=== PATIENT | female | born 1945 | race Caucasian/White ===

== ENCOUNTER 2016-12-27 13:56 | Inpatient (IN) ==
[2016-12-27] MEDS ORDERED: PROPOFOL 200 MG/20 ML VIAL IV ONE (14:10)
--- NOTE | 2016-12-27 15:05 | EKG Report ---
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
[2016-12-27] MEDS ORDERED: HYDROmorphone 2 MG/1 ML VIAL IV STA (15:24)
[2016-12-27] MEDS ORDERED: ONDANSETRON 4 MG/2 ML VIAL IV STA (15:24)
[2016-12-27] MEDS ORDERED: HYDROmorphone 2 MG/1 ML VIAL ONE (15:26)
[2016-12-27] MEDS ORDERED: ONDANSETRON 4 MG/2 ML VIAL ONE (15:26)
[2016-12-27 15:28] LABS: Hematocrit 34.5 VOL% (35.7-47.0); Hemoglobin 11.7 GM/DL (12.0-16.0); Mean Corpuscular HGB Conc 33.9 GM/DL (32-36); Mean Corpuscular Hemoglobin 30 PG (27-34); Mean Corpuscular Volume 88.2 FL (87-102); Red Blood Count 3.91 MC/CUMM (3.8-5.5); White Blood Count 14.6 T/CUMM (4-12)
[2016-12-27 15:29] LABS: Basophils % 0.2 % (0.0-0.8); Eosinophils % 0.2 % (0.00-10.9); Immature Granulocytes % 0.6 %; Immature Granulocytes Absolute 0.09 #; Lymphocytes # 0.7 10*3/uL (1.4-4.0); Lymphocytes % 4.5 % (21.3-54.2); Mean Platelet Volume 9.7 FL (9.6-12.0); Monocytes # 0.5 10*3/uL (0.11-0.8); Monocytes % 3.3 % (1.7-12.7); Neutrophils # 13.3 10*3/uL (1.4-7.4); Neutrophils % 91.2 % (38.7-73.9); Platelet Count 225 T/CUMM (130-400); Red Cell Distribution Width 13.2 % (9.3-17.3)
--- NOTE | 2016-12-27 15:31 | Emergency Department Note ---
Dwaine Segura Brittany, am scribing for, and in the presence of, Silverio Nava MD 14:09. Elijah Segura Doug C, MD, personally performed the services described in this documentation, ascribed by Esther Isidro in my presence, and it is both accurate and complete 531 . Arrival - Arrival Chief Complaint: Fall Stated Complaint: ext injury ED Nursing Triage Note: pt to er 04 via ems coming from home with c/o having a fall today while at home. pt has deformity noted to left arm and is c/o pain to left arm and left knee. pt was given 4mg zofran and 4mg morphine, 25mg benadryl. Mode of Arrival: Stretcher Limitations: No Limitations Source: Patient, RN Notes Reviewed Time Seen by Provider: 12/27/16 14:05 - History of Present Illness HPI Narrative: Patient is a 71-year-old white female who states she was walking in her home and stumbled and fell landing on her left side injuring her left elbow and her left knee. Patient states she is also having pain in her left hip. She was unable to get up on her own and ambulance was called and she was brought here for further evaluation. Patient had obvious deformity of the left upper extremity was noted to have swelling above the left knee. Patient denies any loss of consciousness she denies head injury or neck injury. She denies any chest pain or right-sided extremity pain. She does have a history of osteoporosis apparently suffered several fractures in the past Onset (ago): minute(s) Consistency: constant Severity: severe Severity scale (1-10): 9 Quality: aching Allergies/Adverse Reactions: Allergies Allergy/AdvReac Type Severity Reaction Status Date / Time No Known Allergies Allergy Verified 12/27/16 14:03 Home Medications: Home Medications Medication Instructions Recorded Confirmed Type Cholecalciferol (Vitamin D3) 50,000 unit PO Q7DAY 09/02/14 12/27/16 History [Vitamin D3] Calcium Carbonate [Calcium] 500 mg PO QAM 11/01/14 12/27/16 History Pantoprazole Tab [Protonix Tab] 40 mg PO QAM 11/01/14 12/27/16 History glyBURIDE [Glyburide] 5 mg PO QAM 12/27/16 12/27/16 History Review of System - Review of System 12 point system: reviewed and no additional remarkable complaints except as stated - Review of System Constitutional: Absent: chills, fever Eyes: Absent: vision change Head/Ears/Nose/Throat: Absent: nasal drainage, sore throat Respiratory: Absent: respiratory distress Cardiovascular: Absent: chest pain Gastrointestinal: Absent: abdominal pain, nausea, vomiting, diarrhea, constipation Genitourinary female: Absent: dysuria, frequency, urgency Musculoskeletal: Present: arm pain (LUE), leg pain (L hip, L knee). Absent: back pain, neck pain Skin: Absent: rash Neurological: Absent: headache Psychiatric: Absent: anxiety, depression Hematological/Lymphatic: Absent: easy bleeding, easy bruising Medical,Surgical,& Family Hx - Medical History Endocrine: History of: Diabetes Mellitus (NIDDM) Gastrointestinal: History of: GERD Musculoskeletal: History of: Osteoporosis - Surgical History Orthopedic Surgeries: Surgical HX of;: Orthopedic Surgery (left knee, left hip about 5-8yrs ago) - Family History Family History: Reports;: Family Heart Disease (father and mother) - Social History Smoking Status: Never smoker Frequency of Alcohol Use: None Type of Drug Use: None Exam Vital Signs: Vital Signs Temperature 97.9 F 12/27/16 13:56 Pulse Rate 89 12/27/16 13:56 Respiratory Rate 18 12/27/16 13:56 Blood Pressure 168/91 12/27/16 13:56 O2 Sat by Pulse Oximetry 100 12/27/16 14:47 - General General appearance: alert, in distress (appears uncomfortable secondary to pain) - Head Head exam: Present: atraumatic, normocephalic, normal inspection - Eye Eye exam: Present: normal appearance, PERRL, EOMI - ENT ENT exam: Present: normal exam, normal oropharynx - Neck Neck exam: Present: normal inspection, full ROM, trachea midline - Chest Chest inspection: Present: normal inspection, symmetric chest wall rise - Respiratory Respiratory exam: Present: normal lung sounds bilaterally. Absent: respiratory distress - Cardiovascular Cardiovascular exam: Present: regular rate, normal rhythm, normal heart sounds. Absent: murmur, rubs, gallop - Abdominal Exam Abdominal exam: Present: soft, normal bowel sounds. Absent: tenderness - Extremities Exam Extremities exam: Present: tenderness (L hip & L kneeTTP; LUE TTP), normal capillary refill. Absent: normal inspection (Dislocation and obvious deformity of LUE, radial pulse of LUE intac; normal sensation LUE), full ROM (limited ROM to LUE secondary to dislocation; limited ROM to L hip and L knee secondary to pain) - Back Exam Back exam: Present: normal inspection - Neurological Exam Neurological exam: Present: alert, oriented X3, CN II-XII intact. Absent: motor sensory deficit - Psychiatric Psychiatric exam: Present: normal affect, normal mood - Skin Skin exam: Present: warm, dry Course Course Narrative: After reduction of left elbow fracture posterior splint was applied to the left elbow and knee immobilizer to the left knee. I discussed her radiographic findings and clinical presentation with Dr. Uribe. He asked that the patient be admitted to Dr. Corley services and medicine consult for preoperative evaluation. Dr. Uribe requested CT of the elbow and knee. Chest x-ray and EKG were obtained from the emergency room which revealed no acute abnormality. Procedures - Orthopedic Fracture Reduction Fracture #1 Consent Obtained: verbal consent Time Out Performed: Yes Side: left Fracture Reduction Location: humerus Analgesia: procedural sedation Technique: direct manipulation Post Reduction X-rays Demonstrate: acceptable reduction Post-reduction neuro exam: intact Post-reduction vascular exam: intact Splint Applied: Yes Patient Tolerated Procedure: well Results - EKG EKG results: interpreted by GHASSAN, sinus rhythm (86 bpm), no acute changes - Diagnostic Findings Procedure: X-ray: report reviewed by me (Comminuted fracture of left distal femur and comminuted fracture of left distal humerus. Postreduction views of left elbow reveal persistent displacement.) Disposition Clinical Impression: Fracture dislocation of left elbow joint, Closed left femoral fracture, History of osteoporosis Case discussed with: patient, patient's family Disposition: Still a Patient Condition: Guarded Time of Disposition: 15:31
--- NOTE | 2016-12-27 15:34 | XRay Report ---
Exam: XR knee 2V LT Exam date: 12/27/2016 2:06 PM Indication: Fall, deformity Pain, Comparison: No relevant comparisons Findings: Comminuted angulated and overriding fracture of the distal femur with fracture lines extending through the metaphysis. Degenerative changes across the joint space. Hematoma at the fracture site. No radiographic soft tissue abnormalities. Impression: Comminuted, overriding and displaced fracture of the distal femoral metadiaphysis PROCEDURE INTERPRETED AT [facility] DEPARTMENT OF RADIOLOGY Final Report Signed by: Braeden Pichardo
[2016-12-27] MEDS ORDERED: HYDROmorphone 2 MG/1 ML VIAL IV PRN (15:36)
[2016-12-27] MEDS ORDERED: ONDANSETRON 4 MG/2 ML VIAL IV PRN (15:36)
[2016-12-27] MEDS ORDERED: MAGNESIUM HYDROXIDE SUSP 30 ML UDCUP PO PRN (15:36)
[2016-12-27] MEDS ORDERED: ZALEPLON 5 MG CAPSULE PO PRN (15:36)
--- NOTE | 2016-12-27 15:36 | XRay Report ---
Exam: XR elbow 2V LT Exam date: 12/27/2016 2:07 PM Indication: Deformity, fall, swelling Pain, Comparison: No relevant comparisons Findings: Severely comminuted supracondylar fracture with isolation of the medial lateral condyles. . Surrounding soft tissue hematoma and small hemarthrosis. No radiographic soft tissue abnormalities. Impression: Severely comminuted, angulated and overriding supracondylar fracture PROCEDURE INTERPRETED AT [facility] DEPARTMENT OF RADIOLOGY Final Report Signed by: Braeden Pichardo
--- NOTE | 2016-12-27 15:37 | XRay Report ---
Portable chest Exam date: 12/27/2016 2:06 PM Indication: Shortness of breath, cough fall with extremity deformity Comparison: November 02, 2014 Findings: Cardiomediastinal contours are stable. Chronic interstitial opacities. No acute osseous abnormalities. Visualized upper abdomen demonstrates no acute pathology. Impression: No acute cardiopulmonary findings PROCEDURE INTERPRETED AT [facility] DEPARTMENT OF RADIOLOGY Final Report Signed by: Braeden Pichardo
--- NOTE | 2016-12-27 15:38 | XRay Report ---
Exam: XR femur LT Exam date: 12/27/2016 2:06 PM Indication: Fall with deformity and pain Pain, Comparison: Two-view left knee performed on same date Findings: Dynamic compression screw stabilizing a remote healed femoral neck fracture, uncomplicated. Reidentification of the severely comminuted, overriding and angulated distal femoral metadiaphyseal fracture. Impression: Comminuted distal femoral metadiaphyseal fracture PROCEDURE INTERPRETED AT [facility] DEPARTMENT OF RADIOLOGY Final Report Signed by: Braeden Pichardo
--- NOTE | 2016-12-27 15:39 | XRay Report ---
Exam: XR humerus LT Exam date: 12/27/2016 2:07 PM Indication: Deformity, fall Pain, Comparison: Elbow performed on same day Findings: There is again severely comminuted, overriding and displaced supracondylar fracture. Soft tissue deformity and likely small hemarthrosis is again noted Impression: Severely comminuted, angulated and overriding supracondylar fracture PROCEDURE INTERPRETED AT [facility] DEPARTMENT OF RADIOLOGY Final Report Signed by: Braeden Pichardo
--- NOTE | 2016-12-27 15:40 | XRay Report ---
Exam: XR humerus LT Exam date: 12/27/2016 2:07 PM Indication: Fall with pain and deformity Pain, Comparison: Elbow and humerus performed on same day Findings/ impression: No change in position or alignment of the severely comminuted, displaced and overriding intracondylar fracture PROCEDURE INTERPRETED AT [facility] DEPARTMENT OF RADIOLOGY Final Report Signed by: Braeden Pichardo
--- NOTE | 2016-12-27 15:42 | XRay Report ---
Exam: XR forearm LT Exam date: 12/27/2016 2:07 PM Indication: Fall with pain and deformity Pain, Comparison: Images performed on same day at 1415 hours FINDINGS/ IMPRESSION: Fiberglas cast now stabilizes supracondylar fracture. Overall alignment appears improved PROCEDURE INTERPRETED AT [facility] DEPARTMENT OF RADIOLOGY Final Report Signed by: Braeden Pichardo
--- NOTE | 2016-12-27 15:43 | XRay Report ---
Exam: XR hip 2v w pelvis LT Exam date: 12/27/2016 2:06 PM Indication: Follow with pain and deformity Pain, Comparison: December 29, 2011 Findings: Joint spaces fairly well maintained. Dynamic compression screw stabilizing a remote healed left femoral neck fracture, uncomplicated. No joint effusion. No radiographic soft tissue abnormalities. Impression: No acute findings PROCEDURE INTERPRETED AT [facility] DEPARTMENT OF RADIOLOGY Final Report Signed by: Braeden Pichardo
[2016-12-27 15:49] LABS: Calcium 8.1 MG/DL (8.5-10.1); Osmolality,Calculated 289.3 MOS/KG (273-304); Potassium 3.8 MMOL/L (3.5-5.1)
[2016-12-27 16:00] LABS: Lymphocytes 3 % (20-55); Segmented Neutrophils 96 % (50-85); Total Cells Counted 100
[2016-12-27 16:01] LABS: Platelet Estimate Adequate
--- NOTE | 2016-12-27 16:35 | CT Report ---
Noncontrast CT left knee December 27, 2016 Indication: Fracture, deformity Comparison images not available Technique: CT scan of the left knee was performed without contrast per routine protocol. The CT exam was performed using one or more of the following dose reduction techniques: Automated exposure control, adjustment of the mA and/or kV according to patient size, or use of iterative reconstruction technique. Findings: Comminuted, impacted and angulated fracture of the distal femoral metadiaphysis. Small hemarthrosis. Hematoma at the fracture site. Joint alignment is maintained. No additional fractures are demonstrated. Extensive atheromatous plaquing involving the superficial femoral artery and popliteal origin. Impression: Comminuted, angulated and impaction fracture of the distal femoral metadiaphysis Soft tissue hematoma and small hemarthrosis without findings to suggest vascular injury PROCEDURE INTERPRETED AT [facility] DEPARTMENT OF RADIOLOGY Final Report Signed by: Braeden Pichardo
--- NOTE | 2016-12-27 17:05 | CT Report ---
Limited noncontrast CT left elbow December 27, 2016 Indication: Fall with fracture Comparison CT not available Technique: CT scanning of the left elbow was performed without contrast per routine protocol. The CT exam was performed using one or more of the following dose reduction techniques: Automated exposure control, adjustment of the mA and/or kV according to patient size, or use of iterative reconstruction technique. Findings: Examination is slightly limited secondary to fixed flexion positioning secondary to casting There is severely comminuted supracondylar fracture with isolation of the epicondyles. Angulation and overriding of the dominant fragments. Fragmentation of the capitate. Small hemarthrosis as well as extensive soft tissue hematoma at the fracture site. Impression: 1. Limited study secondary to patient's positioning 2. Severely comminuted supracondylar fracture with isolation fragmentation of the epicondyles and capitate PROCEDURE INTERPRETED AT [facility] DEPARTMENT OF RADIOLOGY Final Report Signed by: Braeden Pichardo
--- NOTE | 2016-12-27 17:12 | Orthopedic Progress Note ---
Assessment and Plan (1) Diabetes mellitus Status: Acute Current Visit: No (2) Fracture dislocation of left elbow joint Status: Acute Assessment and plan: Discussed with the patient and daughter the severity of the left distal humerus fracture and the complexity of the nature of the fracture due to the multiple fragments, the displacement of the fragments, as well as her osteoporosis. Discussed that she will most likely develop significant stiffness, arthritis, pain, and other potential complications from her injury. Discuss treatment options, due to the severity of the fracture and the displacement of the fragments, recommend proceeding with surgical intervention. They have been treated by Dr. Corley in the past and requested him to be the orthopedic surgeon and she is admitted to Dr. Corley service. Discussed that if she is cleared by the medical team for surgery, plan for surgical fixation of her left distal humerus, as well as her left femur tomorrow Current Visit: Yes (3) Closed left femoral fracture Status: Acute Assessment and plan: Discussed the severity of her fracture and multiple combination. We discussed treatment options, and because of the multiple fragments, and the position of the fracture, recommend surgical intervention. They have requested Dr. Corley. Plan for surgical fixation left femur tomorrow if cleared by medicine Consent ordered for surgical fixation left elbow, surgical fixation left distal femur, and any other indicated procedures Current Visit: Yes (4) History of osteoporosis Status: Acute Current Visit: Yes Orthopedics - Subjective Interval history: 71-year-old female seen in the hospital room with her daughter at bedside. States that she had a mechanical fall today. She is brought to the emergency department by EMS. Images were taken which showed a severely comminuted left elbow intra-articular fracture with complete displacement radially, as well as a left distal femur severely comminuted fracture. She complaining of numbness to her left hand. Denies any other complaints. States the pain has been alleviated with her being immobilized as well as with pain medication. Exam - Constitutional Vitals: Period Temp Pulse Resp BP Sys/Batista Pulse Ox Last 24 Hr 97.9 F-97.9 F 89-89 18-18 160-168/91-92 96-100 General appearance: normal weight, no acute distress - Head Head exam: Present: normal inspection, normocephalic, atraumatic - Eye Eye exam: Present: EOMI Pupils: Present: JUSTUS - ENT ENT exam: Present: normal exam - Neck Neck exam: Present: normal inspection. Absent: tenderness - Respiratory Respiratory exam: Absent: accessory muscle use, wheezes - Cardiovascular Cardiovascular exam: Present: regular rate and rhythm - GI/Abdominal GI/Abdominal exam: Absent: distended, firm - Expanded Left Upper Extremity General: Present: normal inspection (Long-arm splint in place. Tender palpation at elbow. Full active range of motion all 5 digits. Sensation blunted to the dorsal hand and middle finger. Capillary refill brisk.) - Expanded Left Lower Knee exam: Present: normal inspection (Knee immobilizer in place. Calf is supple and soft. Full active range of motion foot and ankle. Capillary refill brisk. Sensation intact.) Gait: Present: not tested/not observed - Neurological Exam Neurological exam: Present: alert, oriented X3, CN II-XII intact - Psychiatric Psychiatric exam: Present: normal affect, normal mood - Skin Skin exam: Present: normal color Results - Labs CBC & BMP: 12/27/16 15:18 12/27/16 15:18 Lab Results: I have reviewed the past 24 hour labs - Diagnostic Findings Procedure: CT: image reviewed by me, report reviewed by me, X-ray: image reviewed by me, report reviewed by me Quality Measures - VTE Contraindication to Pharmacological VTE Prophylaxis: Extremities with Hemorrhage
--- NOTE | 2016-12-27 17:20 | Hospitalist Consult Note ---
Assessment and Plan (1) Diabetes mellitus Status: Acute Current Visit: No (2) Fracture dislocation of left elbow joint Status: Acute Current Visit: Yes (3) Closed left femoral fracture Status: Acute Current Visit: Yes (4) History of osteoporosis Status: Acute Assessment and plan: Patient is in need of surgical intervention of her fractures. I am going to order a UA and culture. Patient has no history of coronary artery disease. There is no Q waves in her EKG. There is no ST depression or ST elevations. Patient has no symptoms consistent with coronary artery disease. Patient surgical risk is at a minimum for the procedure. I will have her on sliding scale since her glucose is elevated and recheck a BMP in the morning. Current Visit: Yes History of Present Illness - Consult Narrative Reason for consult: Medical problems History of present illness: Ms. Wong is a 71 year old female with past medical history significant for diabetes, hiatal hernia and osteoporosis who was in normal state of health until today. Patient was at home standing and fell over. She did not trip over anything and I am unsure why she fell. Apparently she has a history of frequent falls. She suffered a knee fracture and elbow fracture. She is brought to our hospital for further evaluation. Patient was admitted to orthopedic surgery we were consulted for her medical problems. Patient is fairly active has no history of coronary artery disease and no significant limitations of her activities. She is on vitamin D supplementation but is not on a bisphosphonate. She follows up with Dr. Smith in [place]. CC: Pastor Corley Jr., - Home Medications and Allergies Home Medications: Home Medications Medication Instructions Recorded Confirmed Type Cholecalciferol (Vitamin D3) 50,000 unit PO Q709/02/14 12/27/16 History [Vitamin D3] Calcium Carbonate [Calcium] 500 mg PO QAM 11/01/14 12/27/16 History Pantoprazole Tab [Protonix Tab] 40 mg PO QAM 11/01/14 12/27/16 History glyBURIDE [Glyburide] 5 mg PO QAM 12/27/16 12/27/16 History Allergies/Adverse Reactions: Allergies Allergy/AdvReac Type Severity Reaction Status Date / Time No Known Allergies Allergy Verified 12/27/16 14:03 Medical,Surgical,& Family Hx - Medical History Endocrine: History of: Diabetes Mellitus (NIDDM) Gastrointestinal: History of: GERD Musculoskeletal: History of: Osteoporosis - Surgical History Orthopedic Surgeries: Surgical HX of;: Orthopedic Surgery (left knee, left hip about 5-8yrs ago) - Family History Family History: Reports;: Family Heart Disease (father and mother), Family Stroke - Social History Smoking Status: Never smoker Frequency of Alcohol Use: None Type of Drug Use: None 12 point system: reviewed and no additional remarkable complaints except as stated Exam - Constitutional Vitals: Period Temp Pulse Resp BP Sys/Batista Pulse Ox Last 24 Hr 97.9 F-97.9 F 89-89 18-18 160-168/91-92 96-100 - General General appearance: alert, in no acute distress currently after receiving pain medication - Head Head exam: Present: atraumatic, normocephalic, normal inspection - Eye Eye exam: Present: normal appearance, PERRL, EOMI - ENT ENT exam: Present: normal exam, normal oropharynx - Neck Neck exam: Present: normal inspection, full ROM, trachea midline - Chest Chest inspection: Present: normal inspection, symmetric chest wall rise - Respiratory Respiratory exam: Present: normal lung sounds bilaterally. Absent: respiratory distress - Cardiovascular Cardiovascular exam: Present: regular rate, normal rhythm, normal heart sounds. Absent: murmur, rubs, gallop - Abdominal Exam Abdominal exam: Present: soft, normal bowel sounds. Absent: tenderness - Extremities Exam Extremities exam: Patient's left upper extremity and left lower extremity both have splints in place. No deformities are currently noted . Peripheral pulses are intact - Back Exam Back exam: Present: normal inspection - Neurological Exam Neurological exam: Present: alert, oriented X3, CN II-XII intact. Absent: motor sensory deficit - Psychiatric Psychiatric exam: Present: normal affect, normal mood - Skin Skin exam: Present: warm, dry Results - Labs CBC & BMP: 12/27/16 15:18 12/27/16 15:18 Quality Measures - VTE Contraindication to Pharmacological VTE Prophylaxis: Extremities with Hemorrhage
[2016-12-27] MEDS ORDERED: DEXTROSE 50% 25 GM/50 ML SYRINGE IV PRN ×2 (17:27→17:36)
[2016-12-27] MEDS ORDERED: GLUCAGON 1 MG VIAL IM PRN (17:27)
[2016-12-27] MEDS: MORPHINE 2 MG/1 ML SYRINGE IV PRN (17:34)
[2016-12-27] MEDS: SODIUM CHLORIDE 0.9% 1,000 ML IV SCH (17:47)
[2016-12-27 18:51] LABS: Apearance,Urine CLEAR (Clear); Bilirubin,Urine Negative (Negative); Blood, Urine Negative (Negative); Glucose,Urine (UA) >=500 mg/dL (Negative); Ketones,Urine 5 mg/dL (Negative); Mucus,Urine Occasional /LPF (Occasional); Nitrite,Urine Positive (Negative); Protein,Urine Negative; RBC,Urine 1 /HPF (0-4); Squamous Epithelial Cell,Urine Occasional /HPF (0-10); Urine Specific Gravity 1.027 (1.001-1.035); WBC,Urine 1 /HPF (0-6)
[2016-12-27 18:52] LABS: Urine Color Dark yellow (Yellow)
[2016-12-27] MEDS: INSULIN REGULAR 100 UNIT/ML SUBCUT SCH (20:57)
[2016-12-28] MEDS: MORPHINE 2 MG/1 ML SYRINGE IV PRN ×2 (01:18→05:11)
[2016-12-28] MEDS: SODIUM CHLORIDE 0.9% 1,000 ML IV SCH ×3 (02:28→11:35)
[2016-12-28 06:43] LABS: Calcium 6.3 MG/DL (8.5-10.1); Osmolality,Calculated 287.7 MOS/KG (273-304); Potassium 3.4 MMOL/L (3.5-5.1)
--- NOTE | 2016-12-28 07:26 | Orthopedic Progress Note ---
Orthopedics - Subjective Interval history: Mrs Wong was seen this morning, examined, the chart and x-rays were reviewed. Alert and oriented Left upper extremity splinted. Sensation is slightly diminished to light touch to her first dorsal webspace, index finger and small finger. She has Heberden' s and Codey's nodes. She is able to flex, extend abductor abductor fingers. She has good abduction strength. Capillary refill is less than 2 seconds. Exam left lower extremity shows that she is splinted. She can flex and extend her toes and ankles. Sensations intact to the first webspace, plantar and dorsal aspects of her foot. She is a 2+ dorsalis pedis pulse. Capillary refill is less than [address] scan were reviewed. Impression: Left comminuted supracondylar/intercondylar distal femur fracture. Left hip retained hardware Left comminuted supracondylar/intercondylar distal humerus fracture I have recommended surgical fixation of both fractures fractures. I discussed the risks and benefits as well as my concerns regarding the poor quality of her bone. We discussed the pre-existing arthritis in her knee. I anticipate that she will be essentially wheelchair bound for the first 6 weeks. All questions were answered. Risks include but not limited to infection, bleeding, anesthesia , thromboembolic event, , stiffness, arthritis, need for further procedures , etc. I discussed the possibility of an ulnar nerve palsy. Exam - Constitutional Vitals: Period Temp Pulse Resp BP Sys/Batista Pulse Ox Last 24 Hr 97.8 F-99.4 F 82-104 18-18 114-168/64-92 91-100 Results - Labs CBC & BMP: 12/28/16 08:38 12/28/16 04:56 Quality Measures - VTE Contraindication to Pharmacological VTE Prophylaxis: Extremities with Hemorrhage
[2016-12-28] MEDS: INSULIN REGULAR 100 UNIT/ML SUBCUT SCH ×4 (08:01→21:01)
[2016-12-28] MEDS ORDERED: POTASSIUM CHLORIDE 20 MEQ/15 ML UDCUP PO ONE (08:02)
[2016-12-28 08:09] LABS: Basophils % 0.2 % (0.0-0.8); Hematocrit 26.1 VOL% (35.7-47.0); Immature Granulocytes % 0.5 %; Immature Granulocytes Absolute 0.06 #; Lymphocytes # 1.3 10*3/uL (1.4-4.0); Lymphocytes % 10.2 % (21.3-54.2); Mean Corpuscular HGB Conc 33.7 GM/DL (32-36); Mean Corpuscular Hemoglobin 30 PG (27-34); Mean Corpuscular Volume 89.4 FL (87-102); Mean Platelet Volume 10.3 FL (9.6-12.0); Monocytes # 1.1 10*3/uL (0.11-0.8); Monocytes % 8.8 % (1.7-12.7); Neutrophils # 10.1 10*3/uL (1.4-7.4); Neutrophils % 80.3 % (38.7-73.9); Platelet Count 253 T/CUMM (130-400); Red Cell Distribution Width 13.3 % (9.3-17.3); White Blood Count 12.5 T/CUMM (4-12)
[2016-12-28 08:11] LABS: Hemoglobin 8.8 GM/DL (12.0-16.0); Red Blood Count 2.92 MC/CUMM (3.8-5.5)
[2016-12-28 08:58] LABS: Basophils % 0.2 % (0.0-0.8); Hematocrit 25.7 VOL% (35.7-47.0); Hemoglobin 8.6 GM/DL (12.0-16.0); Immature Granulocytes % 0.7 %; Immature Granulocytes Absolute 0.07 #; Lymphocytes # 1.3 10*3/uL (1.4-4.0); Lymphocytes % 12.6 % (21.3-54.2); Mean Corpuscular HGB Conc 33.5 GM/DL (32-36); Mean Corpuscular Hemoglobin 30 PG (27-34); Mean Corpuscular Volume 90.5 FL (87-102); Monocytes # 0.9 10*3/uL (0.11-0.8); Monocytes % 8.9 % (1.7-12.7); Neutrophils % 77.6 % (38.7-73.9); Platelet Count 248 T/CUMM (130-400); Red Blood Count 2.84 MC/CUMM (3.8-5.5); Red Cell Distribution Width 13.5 % (9.3-17.3); White Blood Count 10.3 T/CUMM (4-12)
[2016-12-28] MEDS ORDERED: ROPIVACAINE 0.5% 30 ML VIAL ONE (09:41)
[2016-12-28] MEDS: LACTATED RINGERS 1,000 ML IV SCH ×3 (10:00→13:55)
[2016-12-28] MEDS ORDERED: PHENYLEPHRINE 1 MG/10 ML SYRINGE IV ONE (10:07)
[2016-12-28] MEDS ORDERED: ROCURONIUM 100 MG/10 ML VIAL IV ONE (10:07)
[2016-12-28] MEDS ORDERED: PROPOFOL 200 MG/20 ML VIAL IV ONE (10:07)
[2016-12-28] MEDS ORDERED: ONDANSETRON 4 MG/2 ML VIAL ONE ×2 (10:07→16:32)
[2016-12-28] MEDS ORDERED: LIDOCAINE 2% 5 ML VIAL ONE (10:07)
--- NOTE | 2016-12-28 10:33 | Hospitalist Progress Note ---
Assessment and Plan (1) Diabetes mellitus Status: Acute Assessment and plan: continue current regime. HbA1c level Current Visit: Yes (2) UTI (lower urinary tract infection) Status: Acute Assessment and plan: UC showed no growth so far Plan Follow BC Current Visit: No (3) Fracture dislocation of left elbow joint Status: Acute Assessment and plan: Surgery is following, she has been scheduled for a procedure today. Current Visit: Yes (4) Closed left femoral fracture Status: Acute Assessment and plan: for surgical intervention today Current Visit: Yes Hospitalist: Subjective Interval history: Patient seen. She complained of pain in her left elbow. She will be going to surgery today. Exam - Constitutional Vitals: Period Temp Pulse Resp BP Sys/Batista Pulse Ox Last 24 Hr 97.8 F-99.4 F 82-104 18-18 114-168/64-92 91-100 General appearance: no acute distress - Head Head exam: Present: normal inspection - Respiratory Respiratory exam: Present: clear to auscultation bilaterally - Cardiovascular Cardiovascular exam: Present: regular rate and rhythm - GI/Abdominal GI/Abdominal exam: Present: normal bowel sounds - Extremities Exam Extremities exam: Present: other (left elbow in sling, left knee immobilizer in place.) Results - Labs CBC & BMP: 12/28/16 08:38 12/28/16 04:56 Lab Results: I have reviewed the past 24 hour labs Quality Measures - VTE Contraindication to Pharmacological VTE Prophylaxis: Extremities with Hemorrhage
[2016-12-28 11:59] LABS: Free T4 (Free Thyroxine) 1.27 NG/DL (0.76-1.46); Risk Ratio 1.73; Thyroid Stimulating Hormone 0.846 uIU/ml (0.358-3.74); VLDL CHOLESTEROL 9.4 MG/DL
[2016-12-28] MEDS ORDERED: BACITRACIN OINT 0.9 GM PACK TOP ONE (12:02)
[2016-12-28] MEDS ORDERED: diphenhydrAMINE CAP 25 MG CAPSULE PO PRN (12:42)
[2016-12-28] MEDS ORDERED: MORPHINE 2 MG/1 ML SYRINGE IV PRN ×2 (12:42)
[2016-12-28] MEDS ORDERED: GENTAMICIN 80 MG/2 ML VIAL ONE (13:22)
[2016-12-28] MEDS: KETOROLAC 30 MG/1 ML VIAL IV SCH ×2 (13:45→18:28)
--- NOTE | 2016-12-28 15:12 | XRay Report ---
Five-view femur December 28, 2016 Indication: Fracture Comparison images dated December 27, 2016 Technique: Interoperative fluoroscopic imaging was performed for fracture fixation. Fluoroscopy time recorded 59 seconds. Total cumulative dose of 0.11356 mGym2 Findings: Interval open reduction and fixation of the comminuted distal femoral metadiaphyseal fracture stabilized with intramedullary raymond. Alignment is near-anatomic given the severity of fracture. No evidence of hardware failure. Impression: Expected postoperative appearance of the distal femoral fixation PROCEDURE INTERPRETED AT [facility] DEPARTMENT OF RADIOLOGY Final Report Signed by: Braeden Pichardo
[2016-12-28] MEDS ORDERED: FUROSEMIDE 20 MG/2 ML VIAL IV PRN (15:45)
[2016-12-28] MEDS ORDERED: SODIUM CHLORIDE 0.9% 250 ML IV PRN (15:45)
[2016-12-28] MEDS ORDERED: MIDAZOLAM 2 MG/2 ML VIAL ONE (16:01)
[2016-12-28] MEDS ORDERED: fentaNYL 100 MCG/2 ML VIAL ONE (16:03)
[2016-12-28] MEDS ORDERED: DESFLURANE 1 UNIT/15 MINUTE INH ONE (16:07)
[2016-12-28] MEDS ORDERED: LACTATED RINGERS 1,000 ML IV ONE (16:08)
[2016-12-28] MEDS ORDERED: ACETAMINOPHEN 1,000 MG/100 ML VIAL IV ONE (16:08)
--- NOTE | 2016-12-28 16:09 | Operative Note ---
Date of procedure: 12/28/16 Procedure: DIAGNOSIS: Left comminuted supracondylar/intercondylar distal femur fracture. Left hip retained hardware Left comminuted supracondylar/intercondylar distal humerus fracture PROCEDURE: Intramedullary nailing left supracondylar/intercondylar distal femur fracture Hardware removal deep left proximal femur Open reduction internal fixation left comminuted supracondylar/ intercondylar distal humerus fracture SURGEON: Jory ANESTHESIA: General with supraclavicular block PROCEDURE and FINDINGS: After adequate anesthesia was induced, her left lower extremity was prepped and draped in usual sterile fashion. The patient had pre- existing hardware from an intertrochanteric hip fracture. The distal portion of her proximal, lateral femoral incision was utilized. Skin, subcutaneous tissue and iliotibial band was incised. Vastus lateralis was elevated in the distal portion of her plate was identified. The 2 distal screws were removed. The wound was irrigated and closed in layers. Deep layers were closed with 0 Vicryl [id number] suture. Subcutaneous tissue was closed with 3-0 Vicryl. And skin was closed with claudia. Her previous anterior incision was utilized. A median parapatellar approach was made. Because of her previous surgery the patella tendon did not mobilize very well. A retinacular incision was made which was extended into the distal quadriceps tendon. The distal femur was exposed. Guide pins were introduced laterally through small percutaneous incision. 2 4.0 mm cancellus screws were placed to help secure the distal femur. A guidepin was placed for the retrograde nail. The guidepin was overreamed with a straight reamer. A beaded guidewire was passed with the help of an intramedullary reduction tool. The femur was sequentially reamed to 13 mm. A Synthes 13 x 240 mm retrograde intramedullary nail was passed. It was locked distally with the spiral blade in an impinging end cap was placed. Proximally, the nail was locked using a freehand technique in the dynamic slot. Wounds were irrigated. The distal wound was closed deep with 0 Vicryl bwcknt-el-khtpl suture. Subcutaneous tissue was closed with 3-0 Vicryl and claudia were used to close skin for the multiple incisions. A sterile soft dressing and bacitracin was applied. Image intensification was used throughout the procedure. The patient was placed in a lateral decubitus position. The left upper extremity was prepped and draped in usual sterile fashion. A sterile tourniquet was placed. The limb was overwrapped and exsanguinated with Esmarch. Tourniquet was inflated to 250 mmHg. Estimated tourniquet time was 108 minutes. A longitudinal, posterior incision was made. Full-thickness flaps was elevated. The interval along the medial and lateral triceps tendon and muscle belly was developed. The ulnar nerve was identified, mobilized and carefully protected. An olecranon osteotomy was created with a sagittal saw and completed with an osteotome. The fracture cavity was inspected. The median nerve was visualized anteriorly. The medial fragment reduced easily. The lateral column was very comminuted and was difficult to reduce. There was also extensive bone loss posteriorly. Bone quality was poor. Allograft cancellous bone chips were soaked in 160 mg gentamicin and normal saline. The allograft bone was impacted into the deficits. This action substantially aided the reduction. A fully threaded 3.5 millimeter screw was placed through the multiple fragments. The fully threaded screw was used to limit compression across the lateral condyle. The lateral condyle was stabilized with a 2.7 millimeter lag screw with washer and a 2.7 mm contoured reconstruction plate. The medial fragment was stabilized with a contoured, medial column plate. A column screw was applied with excellent stabilization of the medial column. Multiple screws were placed through the plate. The tourniquet was released. The wound was irrigated multiple times throughout the procedure. The olecranon osteotomy was repaired with 2 2.0 mm K wires and an 18-gauge atilss-ty-elani tension band. The elbow had full flexion extension and forearm rotation without crepitus. The ulnar nerve was inspected and placed back into its groove posteriorly. Deep layers were closed with 0 Vicryl. Subcutaneous tissue was closed with 3-0 Vicryl. Skin was closed with claudia. Bacitracin, a sterile dressing and a posterior molded splint was applied. The patient was extubated and transferred to recovery room in stable condition. Surgeon / Physician: Pastor Corley Jr. Results - Labs CBC & BMP: 12/28/16 08:38 12/28/16 04:56 Discharge Plan - Discharge Medications No Action Cholecalciferol (Vitamin D3) [Vitamin D3] 50,000 unit PO Q7DAY Pantoprazole Tab [Protonix Tab] 40 mg PO QAM Calcium Carbonate [Calcium] 500 mg PO QAM glyBURIDE [Glyburide] 5 mg PO QAM - Follow Up or Referral - Forms/Instructions
--- NOTE | 2016-12-28 16:15 | Anesthesia Post-Op ---
Anesthesia Post OP - Post Ansesthetic Evaluation Patient seen in post op: Yes Resp: within normal limits CV: within normal limits Mental: within normal limits Temp: within normal limits Lpli-Hv-Dbvbajocs: within normal limits Nausea and Vomiting: within normal limits Pain: within normal limits
[2016-12-28] MEDS ORDERED: PROMETHAZINE 25 MG/1 ML VIAL ONE (16:32)
[2016-12-28] MEDS ORDERED: ONDANSETRON 4 MG/2 ML VIAL IV PRN (16:38)
[2016-12-28] MEDS ORDERED: SODIUM CHLORIDE 0.9% 500 ML IV PRN (16:38)
[2016-12-28] MEDS ORDERED: PROMETHAZINE INJ 12.5 MG in SODIUM CHLORIDE 0.9% 50 ML IV PRN (16:38)
[2016-12-28] MEDS ORDERED: KETOROLAC 30 MG/1 ML VIAL ONE (16:44)
--- NOTE | 2016-12-28 16:52 | XRay Report ---
Exam: XR elbow 2V LT Exam date: 12/28/2016 3:46 PM Indication: Fracture postop Pain, Comparison: Previous day at 1417 hours Findings: Patient is status post open reduction internal fixation of the severely comminuted distal humeral fracture now stabilized with malleable plates, screws and cerclage wires. Alignment is near-anatomic given severity of fracture. Postoperative changes within the soft tissues. Impression: Expected postoperative appearance of open reduction/fixation of the distal humeral and olecranon fractures PROCEDURE INTERPRETED AT [facility] DEPARTMENT OF RADIOLOGY Final Report Signed by: Braeden Pichardo
[2016-12-28] MEDS ORDERED: HYDROmorphone 2 MG/1 ML VIAL IV PRN (16:53)
[2016-12-28] MEDS: DOCUSATE SODIUM 100 MG CAPSULE PO SCH (21:01)
[2016-12-29 00:05] LABS: Basophils % 0.2 % (0.0-0.8); Hematocrit 33.4 VOL% (35.7-47.0); Immature Granulocytes % 0.4 %; Immature Granulocytes Absolute 0.04 #; Lymphocytes % 10.6 % (21.3-54.2); Mean Corpuscular HGB Conc 32.6 GM/DL (32-36); Mean Corpuscular Hemoglobin 29 PG (27-34); Mean Corpuscular Volume 88.1 FL (87-102); Mean Platelet Volume 10.4 FL (9.6-12.0); Monocytes % 10.7 % (1.7-12.7); Neutrophils # 7.1 10*3/uL (1.4-7.4); Neutrophils % 78.1 % (38.7-73.9); Platelet Count 128 T/CUMM (130-400); Red Blood Count 3.79 MC/CUMM (3.8-5.5); Red Cell Distribution Width 14.3 % (9.3-17.3)
[2016-12-29 00:10] LABS: Hemoglobin 10.9 GM/DL (12.0-16.0)
[2016-12-29 00:24] LABS: Calcium 7.3 MG/DL (8.5-10.1); Osmolality,Calculated 285.5 MOS/KG (273-304); Potassium 3.9 MMOL/L (3.5-5.1)
[2016-12-29] MEDS: LACTATED RINGERS 1,000 ML IV SCH ×3 (01:19→08:03)
[2016-12-29] MEDS: KETOROLAC 30 MG/1 ML VIAL IV SCH ×2 (01:20→06:14)
[2016-12-29] MEDS: FONDAPARINUX 2.5 MG/0.5 ML SYRINGE SUBCUT SCH (06:18)
[2016-12-29 06:36] LABS: Basophils % 0.3 % (0.0-0.8); Hematocrit 26.4 VOL% (35.7-47.0); Immature Granulocytes % 0.3 %; Immature Granulocytes Absolute 0.02 #; Lymphocytes # 1.1 10*3/uL (1.4-4.0); Lymphocytes % 14.8 % (21.3-54.2); Mean Corpuscular Hemoglobin 29 PG (27-34); Mean Platelet Volume 10.1 FL (9.6-12.0); Monocytes # 0.8 10*3/uL (0.11-0.8); Monocytes % 11.2 % (1.7-12.7); Neutrophils # 5.4 10*3/uL (1.4-7.4); Neutrophils % 73.4 % (38.7-73.9); Platelet Count 117 T/CUMM (130-400); Red Cell Distribution Width 14.5 % (9.3-17.3); White Blood Count 7.3 T/CUMM (4-12)
[2016-12-29 06:48] LABS: Hemoglobin 8.7 GM/DL (12.0-16.0)
[2016-12-29 06:52] LABS: Osmolality,Calculated 281.1 MOS/KG (273-304); Potassium 3.9 MMOL/L (3.5-5.1)
[2016-12-29] MEDS ORDERED: PANTOPRAZOLE 40 MG TABLET PO ONE (07:13)
[2016-12-29] MEDS: INSULIN REGULAR 100 UNIT/ML SUBCUT SCH ×4 (07:23→21:34)
[2016-12-29] MEDS: PANTOPRAZOLE 40 MG TABLET PO SCH (08:04)
[2016-12-29] MEDS: CALCIUM (CARBONATE) 500 MG TABLET PO SCH (08:04)
[2016-12-29] MEDS: DOCUSATE SODIUM 100 MG CAPSULE PO SCH ×2 (08:04→20:16)
--- NOTE | 2016-12-29 08:23 | Orthopedic Progress Note ---
Orthopedics - Subjective Interval history: Ms. Wong is comfortable this morning. He is complaining of global numbness to her hand. She states that within the last several hours she is gotten control over her hand. She was transfused 2 units of packed red blood cells last night for acute blood loss anemia. Her dressings and splint are intact. Capillary refill to her hand and foot is intact. She is globally demonstrates decreased sensation to light touch to her hand. She is intact to her left foot. Motor function to her hand and foot is intact. She has good abduction strength of her digits. I discussed the surgical findings and reconstruction. I have expressed my concern that given her underlying there were going to keep her nonweightbearing on her left upper and left lower extremities. I anticipate that this means she will be essentially transfer training for at least the first 6 weeks. Physical therapy is to start today. Exam - Constitutional Vitals: Period Temp Pulse Resp BP Sys/Batista Pulse Ox Last 24 Hr 97.0 F-98.9 F 76-106 16-98 96-143/53-90 91-100 Results - Labs CBC & BMP: 12/29/16 05:32 12/29/16 05:32 Quality Measures - VTE Contraindication to Pharmacological VTE Prophylaxis: Extremities with Hemorrhage
--- NOTE | 2016-12-29 08:41 | Hospitalist Progress Note ---
Assessment and Plan (1) Diabetes mellitus Status: Acute Assessment and plan: She dropped her blood sugar this am, most likely due to patient being on NPo for surgery. She has commenced liquid diet this am, we will hold glyburide for now and continue with SSC.HbA1c level-11.0 so we will consult DM teaching. Current Visit: Yes (2) UTI (lower urinary tract infection) Status: Acute Assessment and plan: UC showed no growth so far Plan Follow BC Current Visit: No (3) Fracture dislocation of left elbow joint Status: Acute Assessment and plan: S/p surgical intervention.Follow recommendations, continue with PT. Current Visit: Yes (4) Closed left femoral fracture Status: Acute Assessment and plan: s/p surgical intervention Current Visit: Yes Hospitalist: Subjective Interval history: Patient seen this am. She had her surgeries yesterday. Her blood sugar dropped this am to 57.She said she cannot really feel her left extremities. Exam - Constitutional Vitals: Period Temp Pulse Resp BP Sys/Batista Pulse Ox Last 24 Hr 97.0 F-98.9 F 76-106 16-98 96-143/53-90 91-100 General appearance: no acute distress - Head Head exam: Present: normal inspection - Respiratory Respiratory exam: Present: clear to auscultation bilaterally - Cardiovascular Cardiovascular exam: Present: regular rate and rhythm - GI/Abdominal GI/Abdominal exam: Present: normal bowel sounds - Extremities Exam Extremities exam: Present: other (left UE in a sling) Results - Labs CBC & BMP: 12/29/16 05:32 12/29/16 05:32 Lab Results: I have reviewed the past 24 hour labs Quality Measures - VTE Contraindication to Pharmacological VTE Prophylaxis: Extremities with Hemorrhage
[2016-12-29] MEDS ORDERED: glyBURIDE 5 MG TABLET PO SCH (09:00)
--- NOTE | 2016-12-29 12:26 | Pathology Report from [facility] ---
[facility] [place] : [id number] PATIENT NAME : Stephen Sam ORDERING DR : VIJAYA PUTNAM MD CLINICAL HX: Left femoral fracture POST-OP DX: Same SPECIMEN INFO: Retained hardware left femur GROSS DESCRIPTION: Received fresh labeled STEPHEN FRAGA consists of two screws, submitted for gross exam only. DIAGNOSIS FOR STEPHEN SAM: Orthopedic hardware, gross only. COLLECTED DATE: 12/28/2016 [facility] REPORT DATE: 12/29/2016 ELECTRONICALLY SIGNED BY: Tee Cedeño M.D. 12/29/2016 - 10:55:41 MTDD
[2016-12-29] MEDS: CELECOXIB 200 MG CAPSULE PO SCH (18:19)
[2016-12-30 05:41] LABS: Basophils % 0.2 % (0.0-0.8); Eosinophils % 0.1 % (0.00-10.9); Hematocrit 30.1 VOL% (35.7-47.0); Immature Granulocytes % 0.5 %; Immature Granulocytes Absolute 0.05 #; Lymphocytes # 0.8 10*3/uL (1.4-4.0); Lymphocytes % 8.4 % (21.3-54.2); Mean Corpuscular HGB Conc 33.2 GM/DL (32-36); Mean Corpuscular Hemoglobin 29 PG (27-34); Mean Corpuscular Volume 86.5 FL (87-102); Mean Platelet Volume 10.1 FL (9.6-12.0); Monocytes # 0.9 10*3/uL (0.11-0.8); Monocytes % 9.6 % (1.7-12.7); Neutrophils # 7.7 10*3/uL (1.4-7.4); Neutrophils % 81.2 % (38.7-73.9); Platelet Count 159 T/CUMM (130-400); Red Blood Count 3.48 MC/CUMM (3.8-5.5); Red Cell Distribution Width 14.4 % (9.3-17.3); White Blood Count 9.5 T/CUMM (4-12)
[2016-12-30] MEDS: FONDAPARINUX 2.5 MG/0.5 ML SYRINGE SUBCUT SCH (05:50)
--- NOTE | 2016-12-30 06:48 | Hospitalist Progress Note ---
Assessment and Plan (1) Diabetes mellitus Status: Acute Assessment and plan: She dropped her blood sugar yesterday, most likely due to patient being on NPo for surgery.She has commenced diet now and her blood sugar is creeping back up. Plan Restart glyburide at a lower dose of 2.5mg, follow response, advance as needed, and continue with SSC. HbA1c level-11.0 Follow DM teaching. Current Visit: Yes (2) UTI (lower urinary tract infection) Status: Acute Assessment and plan: UC and BC showed no growth so far Plan repeat UA Current Visit: No (3) Fracture dislocation of left elbow joint Status: Acute Assessment and plan: S/p surgical intervention.Follow recommendations, continue with PT. Current Visit: Yes (4) Closed left femoral fracture Status: Acute Assessment and plan: s/p surgical intervention Current Visit: Yes Hospitalist: Subjective Interval history: Patient seen this am. She had no new complaints, she had a good night. Blood sugar is creeping back up .We may have to restart her glyburide. Exam - Constitutional Vitals: Period Temp Pulse Resp BP Sys/Batista Pulse Ox Last 24 Hr 97.2 F-99.5 F 71-93 16-20 110-140/58-70 93-96 General appearance: no acute distress - Head Head exam: Present: normal inspection - Respiratory Respiratory exam: Present: clear to auscultation bilaterally - Cardiovascular Cardiovascular exam: Present: regular rate and rhythm - GI/Abdominal GI/Abdominal exam: Present: normal bowel sounds - Extremities Exam Extremities exam: Present: other (left elbow in sling, ) Results - Labs CBC & BMP: 12/30/16 04:57 12/29/16 05:32 Lab Results: I have reviewed the past 24 hour labs Quality Measures - VTE Contraindication to Pharmacological VTE Prophylaxis: Extremities with Hemorrhage
[2016-12-30 06:54] LABS: Hypochromasia 1+; Microcytosis Slight; Platelet Estimate Adequate
--- NOTE | 2016-12-30 07:20 | Orthopedic Progress Note ---
Orthopedics - Subjective Interval history: Mrs. Wong feels better this morning. She is still complaining of numbness to her left hand. She was able to work with therapy yesterday. She was requesting that we use her hinged knee brace that she has had from her previous patellar tendon repair. Exam left upper extremity shows that her splint is clean, dry and intact. She has decreased sensation to the tips of her index and middle fingers. Sensation has returned to her small and ring finger fingers and thumb. Capillary refill is less than 2 seconds. She has mildly limited full flexion. She has full extension and abduction and abduction. Left lower extremity dressing is intact and neurovascularly unchanged. Plan: Continue with physical therapy. Encourage range of motion of left hand. Plan discharge to swing bed tomorrow. The patient can be converted to her hinged knee brace with it locked in extension. Exam - Constitutional Vitals: Period Temp Pulse Resp BP Sys/Batista Pulse Ox Last 24 Hr 97.2 F-99.5 F 71-93 16-20 110-140/58-70 93-96 Results - Labs CBC & BMP: 12/30/16 04:57 12/29/16 05:32 Quality Measures - VTE Contraindication to Pharmacological VTE Prophylaxis: Extremities with Hemorrhage
[2016-12-30] MEDS: INSULIN REGULAR 100 UNIT/ML SUBCUT SCH ×4 (07:49→21:43)
[2016-12-30 07:53] LABS: Amorphous Crystals,Urine Occasional /HPF (Few); Apearance,Urine Slightly Hazy (Clear); Bacteria,Urine Occasional /HPF (Few); Bilirubin,Urine Negative (Negative); Blood, Urine Small mg/dL (Negative); Glucose,Urine (UA) Negative (Negative); Ketones,Urine 80 mg/dL (Negative); Mucus,Urine Occasional /LPF (Occasional); Nitrite,Urine Negative (Negative); Protein,Urine 100 MG/DL; RBC,Urine 109 /HPF (0-4); Squamous Epithelial Cell,Urine Occasional /HPF (0-10); Urine Specific Gravity 1.029 (1.001-1.035); WBC,Urine 62 /HPF (0-6)
[2016-12-30 07:54] LABS: Urine Color Yellow (Yellow)
[2016-12-30] MEDS: PANTOPRAZOLE 40 MG TABLET PO SCH (08:48)
[2016-12-30] MEDS: CELECOXIB 200 MG CAPSULE PO SCH (08:48)
[2016-12-30] MEDS: glyBURIDE 2.5 MG TABLET PO SCH (08:48)
[2016-12-30] MEDS: CALCIUM (CARBONATE) 500 MG TABLET PO SCH (08:48)
[2016-12-30] MEDS: DOCUSATE SODIUM 100 MG CAPSULE PO SCH ×2 (08:48→21:43)
[2016-12-31 05:28] LABS: Basophils % 0.3 % (0.0-0.8); Eosinophils # 0.1 10*3/uL (0.0-0.87); Eosinophils % 1.5 % (0.00-10.9); Hematocrit 28.5 VOL% (35.7-47.0); Hemoglobin 9.7 GM/DL (12.0-16.0); Immature Granulocytes % 0.4 %; Immature Granulocytes Absolute 0.03 #; Lymphocytes # 0.6 10*3/uL (1.4-4.0); Lymphocytes % 9.2 % (21.3-54.2); Mean Corpuscular Hemoglobin 29 PG (27-34); Mean Corpuscular Volume 86.1 FL (87-102); Mean Platelet Volume 10.3 FL (9.6-12.0); Monocytes # 0.6 10*3/uL (0.11-0.8); Monocytes % 8.7 % (1.7-12.7); Neutrophils # 5.4 10*3/uL (1.4-7.4); Neutrophils % 79.9 % (38.7-73.9); Platelet Count 195 T/CUMM (130-400); Red Blood Count 3.31 MC/CUMM (3.8-5.5); Red Cell Distribution Width 14.4 % (9.3-17.3); White Blood Count 6.8 T/CUMM (4-12)
[2016-12-31] MEDS: FONDAPARINUX 2.5 MG/0.5 ML SYRINGE SUBCUT SCH (05:51)
[2016-12-31 06:01] LABS: Band Neutrophils 1 % (0-10); Giant Platelets Few; Hypochromasia 1+; Lymphocytes 10 % (20-55); Platelet Estimate Adequate; Segmented Neutrophils 83 % (50-85); Total Cells Counted 100
[2016-12-31 06:02] LABS: Microcytosis Slight
--- NOTE | 2016-12-31 06:16 | Discharge Summary ---
Hospital Course - Hospital Course Hospital Course: Ainsley Wong was admitted with left comminuted intra-articular supracondylar/intercondylar humerus and femur fractures. Hospitalist service was consulted to manage her medical problems perioperatively. She underwent open reduction internal fixation of her fractures. She received perioperative DVT and antimicrobial prophylaxis. She received physical therapy. She was discharged to swing bed in stable condition. She received 2 units packed red blood cells for acute blood loss anemia. The patient was treated with Rocephin for a presumed urinary tract infection for a positive urinalysis. Her urine cultures were negative. Left upper extremity splinted. She still demonstrates numbness to ring and index fingers. Fingers are mildly swollen. She has almost full range of motion. Left lower extremity is neurovascular intact. Her wounds are dressed and are dry. Specialty Discharge - Follow Up or Referrals Follow up with: Pastor Corley Jr., MD [Physician] - 01/14/17 8:10 am Mere Hernandez MD [Physician] - 02/16/17 12:45 pm (please bring medicines, insurance card and photo id to your appointmetn. Dr. Hernandez office is located on third floor at [facility].) Discharge Plan - Discharge Data Disposition: Disch/Xfer to Snf Condition at Discharge: Stable Discharge Diet: diabetic diet Hygiene: keep area(s) dry Weight Bearing at Discharge: non-weight bearing Driving: not until seen by doctor - Discharge Medications New HYDROcodone/ACETAMIN 7.5-325 [[place] 7.5-325] 1 tablet PO Q4H PRN tablet PRN Reason: Pain Moderate (4-7) HYDROcodone/ACETAMIN 7.5-325 [[place] 7.5-325] 2 tablet PO Q4H PRN tablet PRN Reason: Pain Severe (8-10) Insulin Regular [HumuLIN R] See Protocol SUBCUT ACHS unit Fondaparinux [Arixtra] 2.5 mg SUBCUT Q24H syringe Continue Cholecalciferol (Vitamin D3) [Vitamin D3] 50,000 unit PO Q7DAY Pantoprazole Tab [Protonix Tab] 40 mg PO QAM Calcium Carbonate [Calcium] 500 mg PO QAM glyBURIDE [Glyburide] 5 mg PO QAM - Follow Up or Referral Follow Up: Pastor Corley Jr., MD [Physician] - 01/14/17 8:10 am Mere Hernandez MD [Physician] - 02/16/17 12:45 pm (please bring medicines, insurance card and photo id to your appointmetn. Dr. Hernandez office is located on third floor at [facility].) - Forms/Instructions Instructions: Open Reduction and Internal Fixation of an Arm Fracture (DC) Additional Discharge Instructions: Transfer training bed to chair. Strict nonweightbearing left upper and left lower extremities. Keep splint on left upper extremity clean, dry and intact. Daily dry dressing changes to left lower extremity. Hinged knee brace, locked in extension, to left lower extremity. Remove daily for skin checks and hygiene purposes. Follow-up appointment 2 weeks. Arrange an appointment with [facility] rheumatology in 4-6 weeks for osteoporosis assessment. Prescription for [place] 7.5 with 20 tablets was written. Arixtra for 2 weeks. Ankle pumps to left lower extremity 15-20 times an hour while awake. Exam - Constitutional Vitals: Period Temp Pulse Resp BP Sys/Batista Pulse Ox Last 24 Hr 97.1 F-98.5 F 73-93 16-20 104-133/59-77 95-97 Discharge Results Procedures and tests throughout hospitalization: Pending Orders 12/28/16 08:38 Blood Culture Routine 12/30/16 Urine Culture Routine Labs on day of discharge: Labs from last 24 hours 12/31/16 12/30/16 12/30/16 04:33 20:00 16:07 WBC 6.8 RBC 3.31 L Hgb 9.7 L Hct 28.5 L MCV 86.1 L MCH 29 MCHC 34.0 RDW 14.4 Plt Count 195 D MPV 10.3 Neut % (Auto) 79.9 H Lymph % (Auto) 9.2 L [place] % (Auto) 8.7 Eos % (Auto) 1.5 Baso % (Auto) 0.3 Neut # (Auto) 5.4 Lymph # (Auto) 0.6 L [place] # (Auto) 0.6 Eos # (Auto) 0.1 Baso # (Auto) 0.0 Total Counted 100 Immature Gran % 0.4 Nucleated RBC % 0.0 Immature Gran # 0.03 Segmented Neutrophils 83 Band Neutrophils 1 Lymphocytes 10 L Monocytes 6 Nucleated RBCs # 0.00 Platelet Estimate Adequate Giant Platelets Few Immature Plt Fraction 0.0 Hypochromasia 1+ Microcytosis Slight POC Glucose 109 H 307 H Urine Color Urine Appearance Urine pH Ur Specific [place] Urine Protein Urine Glucose (UA) Urine Ketones Urine Blood Urine Nitrate Urine Bilirubin Urine Urobilinogen Urine Leukocytes Urine RBC Urine WBC Ur Squamous Epith Cells Amorphous Crystals Urine Bacteria Urine Mucus Ur Culture Indicated? 12/30/16 12/30/16 12/30/16 10:52 07:30 07:27 WBC RBC Hgb Hct MCV MCH MCHC RDW Plt Count MPV Neut % (Auto) Lymph % (Auto) [place] % (Auto) Eos % (Auto) Baso % (Auto) Neut # (Auto) Lymph # (Auto) [place] # (Auto) Eos # (Auto) Baso # (Auto) Total Counted Immature Gran % Nucleated RBC % Immature Gran # Segmented Neutrophils Band Neutrophils Lymphocytes Monocytes Nucleated RBCs # Platelet Estimate Giant Platelets Immature Plt Fraction Hypochromasia Microcytosis POC Glucose 205 H 71 L Urine Color Yellow Urine Appearance Slightly hazy Urine pH 5.0 Ur Specific [place] 1.029 Urine Protein 100 Urine Glucose (UA) Negative Urine Ketones 80 Urine Blood Small Urine Nitrate Negative Urine Bilirubin Negative Urine Urobilinogen 2.0 H Urine Leukocytes Small H Urine RBC 109 Urine WBC 62 Ur Squamous Epith Cells Occasional Amorphous Crystals Occasional Urine Bacteria Occasional Urine Mucus Occasional Ur Culture Indicated? Results to follow 12/30/16 12/30/16 07:06 04:57 WBC RBC Hgb Hct MCV MCH MCHC RDW Plt Count MPV Neut % (Auto) Lymph % (Auto) [place] % (Auto) Eos % (Auto) Baso % (Auto) Neut # (Auto) Lymph # (Auto) [place] # (Auto) Eos # (Auto) Baso # (Auto) Total Counted Immature Gran % Nucleated RBC % Immature Gran # Segmented Neutrophils Band Neutrophils Lymphocytes Monocytes Nucleated RBCs # Platelet Estimate Adequate Giant Platelets Immature Plt Fraction Hypochromasia 1+ Microcytosis Slight POC Glucose 50 L Urine Color Urine Appearance Urine pH Ur Specific [place] Urine Protein Urine Glucose (UA) Urine Ketones Urine Blood Urine Nitrate Urine Bilirubin Urine Urobilinogen Urine Leukocytes Urine RBC Urine WBC Ur Squamous Epith Cells Amorphous Crystals Urine Bacteria Urine Mucus Ur Culture Indicated? Preliminary micro results at discharge 12/28/16 08:38 Blood Culture - Preliminary Blood No growth at 1 day 12/28/16 08:38 Blood Culture - Preliminary Blood No growth at 1 day DS: Provider Date of admission: 12/27/16 15:37 Primary care physician: Gudelia Moya Attending physician on admission: Pastor Corley Jr., Consults: 12/27/16 15:37 Consult to Anesthesiology [CONS] Routine Consulting Provider: Reason for Anesthesiology: Pre-op Clearance 12/27/16 16:45 Consult to Physician [CONS] Routine Comment: Consulting Provider: Esther Coppola Person Notified: ZARI BYRD Date Notified: 12/27/16 Time Notified: 16:54 12/27/16 18:31 Consult to Pastoral Services [CONS] Routine Comment: Pastoral Screen: Request Wind Energy Project Manager Visit 12/28/16 12:42 Consult to Case Mgmt/Social Srvs [CONS] Routine Reason for Case Mgmt/Social Srvs: Rehab Home Health Equipment Consult Comment: Bedside Commode, CPM, Walker Consult to Occupational Therapy [CONS] Routine Reason for Occupational Therapy: Evaluate and Treat Consult Comment: ADL's Consult to Physical Therapy [CONS] Routine Reason for Physical Therapy: Evaluate and Treat Gait Training Start Therapy: Tomorrow Consult Comment: richard buchanan. transfer train 12/29/16 08:46 Consult to Diabetes Center, Educator [CONS] Routine Reason for Coal Hauler Operator: Diabetes Education Discharging clinician: Pastor Corley Jr., Expected date of discharge: 12/31/16
[2016-12-31] MEDS: INSULIN REGULAR 100 UNIT/ML SUBCUT SCH ×2 (07:32→11:56)
[2016-12-31] MEDS: glyBURIDE 2.5 MG TABLET PO SCH ×2 (07:33→08:31)
[2016-12-31] MEDS: PANTOPRAZOLE 40 MG TABLET PO SCH (08:31)
[2016-12-31] MEDS: CALCIUM (CARBONATE) 500 MG TABLET PO SCH (08:31)
[2016-12-31] MEDS: DOCUSATE SODIUM 100 MG CAPSULE PO SCH (08:31)
--- NOTE | 2016-12-31 09:42 | Hospitalist Progress Note ---
Assessment and Plan (1) Left humeral fracture Status: Acute Assessment and plan: Status post ORIF of left humerus fracture Current Visit: Yes (2) Diabetes mellitus Status: Acute Assessment and plan: Blood sugars controlled, Continue glyburide Current Visit: Yes (3) Closed left femoral fracture Status: Acute Assessment and plan: Status post intramedullary nailing of the left supracondylar and intercondylar distal femur fracture Current Visit: Yes (4) UTI (lower urinary tract infection) Status: Acute Assessment and plan: already adequately treated. Current Visit: No Hospitalist: Subjective Interval history: No growth on the urine culture. Patient has received already 4 days of IV antibiotics which should be adequate to treat anything. Suspect repeat UA is contaminated. Exam - Constitutional Vitals: Period Temp Pulse Resp BP Sys/Batista Pulse Ox Last 24 Hr 97.1 F-98.4 F 73-90 16-20 104-140/59-77 95-97 Exam: Heart Rate-[RRR] Lungs-[CTAB] GI-[+bs soft, NT] Ext-left arm swollen and wrapped Neuro [Motor 5/5 but weak], [alert and oriented times 3] psych [normal mood and affect] General [no acute distress] Results - Labs CBC & BMP: 12/31/16 04:33 12/29/16 05:32 Lab Results: I have reviewed the past 24 hour labs Quality Measures - VTE Contraindication to Pharmacological VTE Prophylaxis: Extremities with Hemorrhage Specialty Discharge - Follow Up or Referrals Follow up with: Pastor Corley Jr., MD [Physician] - 01/14/17 8:10 am Mere Hernandez MD [Physician] - 02/16/17 12:45 pm (please bring medicines, insurance card and photo id to your appointmetn. Dr. Hernandez office is located on third floor at [facility].)
[2016-12-31 12:01] VITALS: BP 150/76
[2017-01-04] MEDS ORDERED: ERGOCALCIFEROL 50,000 UNIT CAPSULE PO SCH (09:00)
== END 2016-12-31 13:50 | disposition swing bed (61) | DRG 481 ==
LOC: EDUNIT# → EDBD → N.ED 13:56 → N.EDINP 15:36 → N.3E 16:44
PROVIDERS: ADMIT Orthopaedic Surgery; ATTEND Orthopaedic Surgery